=== PATIENT | female | born 1950 | race Caucasian/White ===

== ENCOUNTER 2016-07-17 20:13 | Emergency (ER) | payer OTHER ==
--- NOTE | 2016-08-05 21:34 | ER ---
ADMIT: 07/17/2016 RM/LOC: ER [facility] MR#: [id number] [address] [address] ABRA[address] RUDD [address] [place] [address] Emergency Room Report SEX: F AGE: 66 : 1950 DATE: 07/17/2016 A 66-year-old complains of leg pain when she walks 50 feet in both legs, it goes away when she rests, only to return at approximately 50 feet. We have discussed with Dr. Grijalva, who requested to do a CBC and CMP that were normal. She felt she could be followed up in the clinic as scheduled this Sunday and was indeed unremarkable say for potassium of 3.6 and creatinine 1.6. CBC was normal. The patient is diagnosed with claudication and instructed to follow up as scheduled with Dr. Grijalva. Mahesh Hood MD/ jass JOB #: [id number] CC: Barry Moreno MD, Attending Physician Melissa Grijalva MD, Family Physician
== END 2016-07-17 22:10 | disposition home or self-care (01) ==
LOC: ER 20:13
DX: I73.9 Peripheral vascular disease, unspecified (principal); I10 Essential (primary) hypertension; Z88.8 Allergy status to other drugs, medicaments and biological substances; Z79.899 Other long term (current) drug therapy

== ENCOUNTER 2016-08-13 12:25 | Emergency (ER) | payer OTHER ==
--- NOTE | 2016-08-19 08:39 | ER ---
ADMIT: 08/13/2016 RM/LOC: ER [facility] MR#: [id number] [address] [address] ABRAHAN RUDD [address] [place] [address] Emergency Room Report SEX: F AGE: 66 : 1950 DATE: 08/13/2016 This is a 66-year-old female who was throwing a football approximately 7 days ago when she developed neck pain on the right side. It is worsened with movement of her neck and she tried heating pad without relief. Subsequently comes to the Emergency Department. Here she is tender along the trapezius. See T sheet for history and physical. The patient diagnosed with neck pain, given Toradol, prednisone in the ER. Discharged with prescription for Ultram. Encouraged continued use of heating pad. She was given a short prescription of Flexeril as well. DISCHARGE DIAGNOSIS: Neck pain. Mahesh Hood MD/ jass JOB #: [id number] CC: Edgardo Cantor MD, Attending Physician
== END 2016-08-13 14:55 | disposition home or self-care (01) ==
LOC: ER 12:25
DX: M54.2 Cervicalgia (principal); I10 Essential (primary) hypertension; E03.9 Hypothyroidism, unspecified; Z90.49 Acquired absence of other specified parts of digestive tract; Z88.6 Allergy status to analgesic agent; Z79.899 Other long term (current) drug therapy